=== PATIENT | male | born 1980 | race Caucasian/White ===

== ENCOUNTER 2022-02-05 10:04 | Emergency (ER) | payer OTHER, BC ==
[2022-02-05 10:31] VITALS: BP 125/80; PULSE 94; RESP 16; TEMP 98.4; BMI 35.3
[2022-02-05] MEDS ORDERED: ASPIRIN 81 MG CHEWABLE TABLETS PO ONE (11:10)
[2022-02-05] MEDS ORDERED: ACETAMINOPHEN 500 MG TABLET (FP) PO ONE (11:11)
[2022-02-05] MEDS ORDERED: ASPIRIN 81 MG CHEWABLE TABLETS ONE (11:22)
[2022-02-05] MEDS ORDERED: ACETAMINOPHEN INJECTION 100 ML IVPB ONE (11:22)
[2022-02-05 12:44] LABS: BASO % 0.4 % (0-2.0); EOS % 0.9 % (0-4.5); HEMATOCRIT 49.7 % (35.4-49); HEMOGLOBIN 16.4 GM/dL (11.7-16.9); MCH 29.2 pg (25.7-33.7); MEAN CELL VOLUME 88.6 fl (80-96); MEAN PLT VOLUME 7.3 fl (7.5-11.1); MONO % 6.4 % (3.8-10.2); NEUT % 68.3 % (42.8-82.8); PLATELET COUNT 412 10^3/uL (134-434); RBC 5.62 M/mm3 (4.00-5.60); RDW 13.6 % (11.9-15.9); WHITE BLOOD COUNT 10.7 K/mm3 (4.0-10.0)
[2022-02-05 13:09] LABS: CALCIUM 9.5 mg/dL (8.5-10.1)
[2022-02-05 13:10] LABS: ALBUMIN 4.5 g/dl (3.4-5.0); BLOOD UREA NITROGEN 11.7 mg/dL (7-18)
[2022-02-05 13:13] LABS: CREATININE 0.7 mg/dL (0.55-1.3)
[2022-02-05 13:14] LABS: BILIRUBIN,TOTAL 0.6 mg/dL (0.2-1); TOT PROT 7.9 g/dl (6.4-8.2)
[2022-02-05] MEDS ORDERED: NAPROXEN 500 MG TABLET PO ONE (13:58)
[2022-02-05] MEDS ORDERED: NAPROXEN 500 MG TABLET ONE (14:21)
== END 2022-02-05 14:35 | disposition home or self-care (01) ==
LOC: JER 10:04
DX: R07.9 Chest pain, unspecified (principal)
CPT/HCPCS: 0241U-QW; 36415; 71046-TC-FY; 80053; 83735; 84484; 85025; 93005; 93010; 99285-25